=== PATIENT | male | born 1990 | race Caucasian/White ===

== ENCOUNTER 2016-09-26 21:34 | Emergency (ER) | payer SELFPAY ==
[2016-09-26 21:46] VITALS: BP 148/74
== END 2016-09-27 00:05 | disposition left against medical advice (07) ==
LOC: ER 21:34
DX: Z53.9 Procedure and treatment not carried out, unspecified reason (principal); R10.9 Unspecified abdominal pain

== ENCOUNTER 2017-01-17 00:10 | Emergency (ER) | payer SELFPAY ==
[2017-01-17] MEDS ORDERED: HYDROCODONE/ACETAMINOPHEN 10-325 MG TABLET PO ONE (00:35)
[2017-01-17] MEDS ORDERED: ONDANSETRON 4 MG TAB.RAPDIS PO ONE (00:35)
[2017-01-17] MEDS ORDERED: DIPH/PERTUSS(ACELL)/TETANUS VAC/PF 0.5 ML SYR (>=10YO) IM ONE (00:36)
[2017-01-17] MEDS ORDERED: LIDOCAINE 1%/EPINEPHRINE INJ 20 ML VIAL INJ ONE (00:36)
[2017-01-17] MEDS ORDERED: LIDOCAINE 1% INJ-PF (10 MG/ML) 30 ML SDV INJ ONE (00:37)
[2017-01-17] MEDS ORDERED: CEPHALEXIN 500 MG CAPSULE PO ONE (00:39)
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
[2017-01-17 01:50] VITALS: BP 141/86
== END 2017-01-17 01:54 | disposition home or self-care (01) ==
LOC: ER 00:10
PROC: 09QKXZZ Repair Nasal Mucosa and Soft Tissue, External Approach (ICD-10-PCS; principal; 2017-01-17)
DX: S01.21XA Laceration without foreign body of nose, initial encounter (principal); S50.12XA Contusion of left forearm, initial encounter; Y04.2XXA Assault by strike against or bumped into by another person, initial encounter; Y93.01 Activity, walking, marching and hiking; Y92.410 Unspecified street and highway as the place of occurrence of the external cause; M79.632 Pain in left forearm; R51 Headache; J45.909 Unspecified asthma, uncomplicated; F17.200 Nicotine dependence, unspecified, uncomplicated; Z87.81 Personal history of (healed) traumatic fracture
CPT/HCPCS: 99284; 90471; 73090; 90715; 12011; S0119

== ENCOUNTER 2017-03-24 14:29 | Emergency (ER) | payer SELFPAY ==
[2017-03-24 14:39] VITALS: BP 154/80
[2017-03-24 15:10] LABS: ABSOLUTE BASOPHILS # (AUTO) 0.1 10^3/uL (0.0-0.2); ABSOLUTE EOSINOPHILS # (AUTO) 0.5 10^3/uL (0.0-0.6); ABSOLUTE LYMPHOCYTES (AUTO) 2.8 10^3/uL (0.5-4.7); ABSOLUTE MONOCYTES (AUTO) 0.9 10^3/uL (0.1-1.4); ABSOLUTE NEUT (AUTO) 4.9 10^3/uL (1.7-8.2); BASOPHILS % (AUTO) 0.9 % (0-2); EOSINOPHILS % (AUTO) 5.4 % (0-6); HEMATOCRIT 45.1 % (37.9-51.0); HEMOGLOBIN 16.1 g/dL (13.5-17.0); HGB HCT DIFFERENCE 3.2; LYMPHOCYTES % (AUTO) 30.3 % (13-45); MEAN CORPUSCULAR HEMOGLOBIN 30.6 pg (27.0-33.4); MEAN CORPUSCULAR HGB CONC 35.7 g/dL (32.0-36.0); MEAN CORPUSCULAR VOLUME 86 fl (80-97); MONOCYTES % (AUTO) 9.9 % (3-13); RED BLOOD COUNT 5.25 10^6/uL (4.35-5.55); RED CELL DISTRIBUTION WIDTH 13.5 % (11.5-14.0); SEGMENTED NEUTROPHILS % (AUTO) 53.5 % (42-78); WHITE BLOOD COUNT 9.2 10^3/uL (4.0-10.5)
[2017-03-24 15:26] LABS: ALANINE AMINOTRANSFERASE 70 U/L (21-72); ALBUMIN 4.5 g/dL (3.5-5.0); ALKALINE PHOSPHATASE 115 U/L (38-126); ANION GAP 11 (5-19); ASPARTATE AMINO TRANSFERASE 23 U/L (17-59); BILIRUBIN,DIRECT 0.4 mg/dL (0.0-0.4); BILIRUBIN,TOTAL 0.7 mg/dL (0.2-1.3); BLOOD UREA NITROGEN 8 mg/dL (7-20); CALCIUM 9.8 mg/dL (8.4-10.2); CARBON DIOXIDE 23 mmol/L (22-30); CHLORIDE 108 mmol/L (98-107); CREATININE RESULT 0.71 mg/dL (0.52-1.25); GLUCOSE 88 mg/dL (75-110); POTASSIUM 4.1 mmol/L (3.6-5.0); SODIUM 141.8 mmol/L (137-145)
--- NOTE | 2017-03-24 15:35 | ER Document Report ---
ED General - General Chief Complaint: Bloody Stools Stated Complaint: STOOL ISSUES Time Seen by Provider: 03/24/17 14:51 Mode of Arrival: Ambulatory Information source: Patient Notes: Patient states 4 days ago he had 4 episodes of blood in his stool. He states he has had none since. He states he has had no nausea vomiting. No abdominal pain. No previous history of similar problems. He denies any chronic medical conditions or previous surgeries. He has not been lightheaded or dizzy. No rashes. He has been eating normally. Symptoms are mild. They were intermittent. Nothing made it better or worse. No known radiation of symptoms. TRAVEL OUTSIDE OF THE [place] IN LAST 30 DAYS: No - Related Data Allergies/Adverse Reactions: No Known Allergies Allergy (Verified 03/24/17 14:33) Past Medical History - General Information source: Patient - Social History Smoking Status: Current Every Day Smoker Cigarette use (# per day): Yes Frequency of alcohol use: Occasional Drug Abuse: None Family History: Reviewed & Not Pertinent Patient has suicidal ideation: No Patient has homicidal ideation: No Pulmonary Medical History: Reports: Hx Asthma Renal/ Medical History: Denies: Hx Peritoneal Dialysis Traumatic Medical History: Reports: Hx Fractures - arm - Immunizations Immunizations up to date: No Hx Diphtheria, Pertussis, Tetanus Vaccination: No Review of Systems - Review of Systems Constitutional: denies: Chills, Fever Cardiovascular: denies: Chest pain, Palpitations Respiratory: denies: Cough, Hemoptysis -: Yes All other systems reviewed and negative Physical Exam - Vital signs Vitals: Temp Pulse Resp BP Pulse Ox 99.1 F 87 18 154/80 H 96 03/24/17 14:32 03/24/17 14:32 03/24/17 14:32 03/24/17 14:32 03/24/17 14:32 Interpretation: Hypertensive - General General appearance: Appears well, Alert - HEENT Head: Normocephalic, Atraumatic Eyes: Normal Pupils: PERRL - Respiratory Respiratory status: No respiratory distress Chest status: Nontender Breath sounds: Normal Chest palpation: Normal - Cardiovascular Rhythm: Regular Heart sounds: Normal auscultation Murmur: No - Abdominal Inspection: Normal Distension: No distension Bowel sounds: Normal Tenderness: Nontender Organomegaly: No organomegaly - Back Back: Normal, Nontender - Extremities General upper extremity: Normal inspection, Nontender, Normal color, Normal ROM , Normal temperature General lower extremity: Normal inspection, Nontender, Normal color, Normal ROM , Normal temperature, Normal weight bearing. No: Mariah's sign - Neurological Neuro grossly intact: Yes Cognition: Normal Orientation: AAOx4 Rhonda Coma Scale Eye Opening: Spontaneous Springer Coma Scale Verbal: Oriented Rhonda Coma Scale Motor: Obeys Commands Rhonda Coma Scale Total: 15 Speech: Normal Motor strength normal: LUE, RUE, LLE, RLE Sensory: Normal - Psychological Associated symptoms: Normal affect, Normal mood - Skin Skin Temperature: Warm Skin Moisture: Dry Skin Color: Normal Course - Vital Signs Vital signs: Temp Pulse Resp BP Pulse Ox 99.1 F 87 18 154/80 H 96 03/24/17 14:32 03/24/17 14:32 03/24/17 14:32 03/24/17 14:32 03/24/17 14:32 - Laboratory Result Diagrams: 03/24/17 14:55 03/24/17 14:55 Laboratory results interpreted by me: 03/24/17 14:55 Chloride 108 H Discharge - Discharge Clinical Impression: Blood in stool, tara Condition: Stable Disposition: HOME, SELF-CARE Instructions: Stool Blood Test ([facility]) Additional Instructions: Please call your primary care physician as soon as possible to arrange follow- up. If you continue to have bleeding in her stool he will possibly need to have an endoscopy. Your blood pressure is mildly elevated today. Please have this rechecked by your physician within the next week. Forms: Elevated Blood Pressure, Return to Work Referrals: ROSEANNE BOSS MD [COMMUNITY BASED STAFF] - Follow up in 1 week
== END 2017-03-24 16:02 | disposition home or self-care (01) ==
LOC: ER 14:29
DX: K92.1 Melena (principal); F17.210 Nicotine dependence, cigarettes, uncomplicated
CPT/HCPCS: 36415; 80053; 85025; 99284